=== PATIENT | female | born 1955 | race Caucasian/White ===

== ENCOUNTER → 2022-04-02 | Outpatient (CLI) | payer MEDICARE, OTHER ==
--- NOTE | 2022-04-02 14:59 | Diagnostic Imaging Report ---
Pain EXAMINATION: Left shoulder 04/02/2022. FINDINGS: 3 views of the shoulder. There is narrowing and spurring at the acromioclavicular joint. No superimposed fractures or dislocations appreciated. Visualized lung clear. IMPRESSION: 1. Chronic findings. No acute osseous abnormality. Dictated by: Dictated on workstation # [id number]
== END ==
LOC: ORTHO 10:42
PROVIDERS: ATTEND Orthopaedic Surgery
DX: M25.512 Pain in left shoulder (principal)
CPT/HCPCS: 73030; G0463; 99213

== ENCOUNTER → 2022-08-06 | Outpatient (CLI) | payer MEDICARE, OTHER ==
--- NOTE | 2022-08-06 11:56 | Diagnostic Imaging Report ---
Indication: Right knee pain 4 views of the right knee shows mild degenerative changes with small osteophytes forming at the medial lateral articular margins. Joint spaces are relatively well-maintained. Articular surfaces are smooth. Patellofemoral joint shows mild osteophyte formation superior lateral margins. IMPRESSION: Mild tricompartmental degenerative changes of the right knee. No acute abnormality seen. Dictated by: Dictated on workstation # [id number]
== END ==
LOC: ORTHO 10:54
PROVIDERS: ATTEND Orthopaedic Surgery
DX: M17.11 Unilateral primary osteoarthritis, right knee (principal)
CPT/HCPCS: 20610; 73564

== ENCOUNTER → 2022-09-02 | Outpatient (CLI) | payer MEDICARE, OTHER | LOC: ORTHO 12:05 | PROVIDERS: ATTEND Orthopaedic Surgery | DX: M17.11 Unilateral primary osteoarthritis, right knee (principal) | CPT/HCPCS: 20610 ==

== ENCOUNTER → 2023-02-03 | Outpatient (CLI) | payer MEDICARE, OTHER ==
--- NOTE | 2023-02-03 12:18 | Diagnostic Imaging Report ---
EXAMINATION: MRI of the right knee without contrast, 02/03/2023. TECHNIQUE: Multiplanar, multisequence [id number] MRI of the right lower extremity was accomplished. INDICATION: Knee pain status post injury in July. FINDINGS: There is mild edema surrounding the MCL suggesting a sprain. The lateral collateral ligamentous complex is intact. The extensor mechanism is intact. ACL and PCL are intact. The lateral meniscus demonstrates mild undersurface fraying along the posterior horn. A tear of the posterior horn and body of the medial meniscus is noted with a small adjacent paralabral cyst. Moderate loss of cartilage is seen throughout the medial compartment. There is an adjacent focal irregularity along the medial femoral condyle, which demonstrates subchondral hypointensity on T1- and T2-weighted imaging with surrounding edema and subchondral cystic change. This is most consistent with an osteochondral defect, which measures 2.1 x 1 cm. Minimal thinning of the cartilage is seen in the lateral joint space with moderate loss of cartilage in the patellofemoral joint. Subchondral cystic change is seen in the patellar apex. Minimal joint fluid is noted. There is a small Moody's cyst. IMPRESSION: 1. Large osteochondral defect along the mid to posterior aspect of the medial femoral condyle with other degenerative findings as above. 2. Tear of the posterior horn and body of the medial meniscus with undersurface fraying along the posterior horn of the lateral meniscus. 3. MCL sprain with remaining ligaments and tendons unremarkable. Dictated by: Dictated on workstation # [id number]
== END ==
LOC: RAD 09:49
PROVIDERS: ATTEND Orthopaedic Surgery
DX: S83.411A Sprain of medial collateral ligament of right knee, initial encounter (principal); S83.241A Other tear of medial meniscus, current injury, right knee, initial encounter; M17.11 Unilateral primary osteoarthritis, right knee; X58.XXXA Exposure to other specified factors, initial encounter
CPT/HCPCS: 73721